=== PATIENT | female | born 1995 | race Caucasian/White ===

== ENCOUNTER 2024-08-07 14:44 | Emergency (ER) | payer OTHER ==
[~2024-08-07] VITALS: Ht 167.6 cm; Wt 56.0 kg
[2024-08-07 14:54] VITALS: O2SAT 96
[2024-08-07] MEDS: ACETAMINOPHEN 325MG TABLET PO ONE (17:58)
[2024-08-07] MEDS: KETOROLAC 15MG/ML VIAL IM ONE (17:58)
[2024-08-07 20:06] VITALS: BP 148/70; PULSE 87; RESP 15; TEMP 36.7; O2SAT 96
== END 2024-08-07 20:07 | disposition home or self-care (01) ==
LOC: ER 14:44
DX: S63.502A Unspecified sprain of left wrist, initial encounter (principal); V49.9XXA Car occupant (driver) (passenger) injured in unspecified traffic accident, initial encounter; Y93.89 Activity, other specified; Y92.410 Unspecified street and highway as the place of occurrence of the external cause; Y99.8 Other external cause status
CPT/HCPCS: 99284; 73110; 73130; 73562; 73590; 96372; J1885